=== PATIENT | female | born 1985 | race Caucasian/White ===

== ENCOUNTER 2017-04-21 11:49 | Emergency (ER) | payer OTHER ==
[~2017-04-21] VITALS: Ht 170.2 cm; Wt 52.6 kg
[~2017-04-21 11:49] MED LIST: ALBU17AE26 IH; DEPOPROVER IM; FLUT12AE5 IH
[2017-04-21 11:50] VITALS: BP_SYST 124
[2017-04-21 14:58] LABS: HEMATOCRIT 48.2 % (36-48); HEMOGLOBIN 15.8 g/dL (12.0-16.0); MEAN CORPUSCULAR HEMOGLOBIN 31 pg (27-31); MEAN CORPUSCULAR HGB CONC 33 % (32-36); MEAN CORPUSCULAR VOLUME 95 fL (79.0-98.0); PLATELET COUNT (AUTO) 219 K/uL (130-430); RED BLOOD CELL COUNT(AUTO) 5.08 MIL/uL (4.2-6.2); RED CELL DISTRIBUTION WIDTH 12.6 % (9.0-15.0); WHITE BLOOD COUNT (AUTO) 11.9 K/uL (4.8-10.8)
[2017-04-21 15:13] LABS: CREATININE 0.88 mg/dL (0.55-1.30); POTASSIUM 3.8 mmol/L (3.5-5.1)
[2017-04-21 15:18] LABS: ALBUMIN 4.3 g/dL (3.4-4.8); TOTAL BILIRUBIN 1.2 mg/dL (0.0-1.0)
[2017-04-21] MEDS: IBUPROFEN 600 MG TABLET PO ONE (15:20)
[2017-04-21 15:23] LABS: PROTHROMBIN TIME 10.1 SECS (9.5-12.5)
[2017-04-21] MEDS: ONDANSETRON 4 MG ODT TAB PO ONE (15:26)
[2017-04-21] MEDS: traMADol HCL HCL 50 MG TABLET (ULTRAM) PO ONE (15:27)
[2017-04-21 15:59] LABS: BASOPHILS % (MANUAL) 0 % (0-2); EOSINOPHILS % (MANUAL) 4 % (0-7); LYMPHOCYTES % (MANUAL) 13 % (20-46); MONOCYTES % (MANUAL) 6 % (0-11)
[2017-04-21 16:38] VITALS: BP_SYST 122
== END 2017-04-21 16:44 | disposition home or self-care (01) ==
LOC: SED 11:49
DX: J20.9 Acute bronchitis, unspecified (principal); J45.909 Unspecified asthma, uncomplicated; Z88.0 Allergy status to penicillin; Z79.899 Other long term (current) drug therapy
CPT/HCPCS: 36415; 71010; 71100; 80053; 81025; 84484; 84703; 85007; 85027; 85379; 85610; 85730; 93005; 99285; Q0162

== ENCOUNTER 2017-04-24 09:15 | Emergency (ER) | payer OTHER ==
[~2017-04-24] VITALS: Ht 170.2 cm; Wt 52.6 kg
[2017-04-24 09:18] VITALS: BP_SYST 114
[2017-04-24] MEDS ORDERED: ALBUTEROL SULFATE 0.083% 2.5 MG/3 ML VIAL.NEB IH ONE (10:00)
[2017-04-24] MEDS ORDERED: KETOROLAC TROMETHAMINE 30 MG VIAL IVP ONE (10:00)
[2017-04-24] MEDS ORDERED: IPRATROPIUM BROM 0.5 MG/2.5 ML VIAL.NEB (ATROVENT) IH ONE (10:00)
[2017-04-24 10:27] LABS: BASOPHILS % (AUTO) 0.4 % (0.0-2.0); EOSINOPHILS # (AUTO) 0.1 K/uL (0.0-0.4); EOSINOPHILS % (AUTO) 1.4 % (0.0-4.0); HEMATOCRIT 43.4 % (36-48); HEMOGLOBIN 14.3 g/dL (12.0-16.0); LYMPHOCYTES # (AUTO) 1.1 K/uL (1.0-5.5); LYMPHOCYTES % (AUTO) 12.5 % (20.5-51.5); MEAN CORPUSCULAR HEMOGLOBIN 31 pg (27-31); MEAN CORPUSCULAR HGB CONC 33 % (32-36); MEAN CORPUSCULAR VOLUME 95 fL (79.0-98.0); MONOCYTES # (AUTO) 0.5 K/uL (0.0-1.0); MONOCYTES % (AUTO) 5.7 % (1.7-9.3); NEUTROPHILS # (AUTO) 7.1 K/uL (1.8-7.7); PLATELET COUNT (AUTO) 263 K/uL (130-430); RED BLOOD CELL COUNT(AUTO) 4.57 MIL/uL (4.2-6.2); RED CELL DISTRIBUTION WIDTH 12.2 % (9.0-15.0); WHITE BLOOD COUNT (AUTO) 8.8 K/uL (4.8-10.8)
[2017-04-24 10:48] LABS: CALCIUM 8.9 mg/dL (8.4-11.0); CREATININE 0.87 mg/dL (0.55-1.30); POTASSIUM 3.8 mmol/L (3.5-5.1)
[2017-04-24 10:52] LABS: ALBUMIN 3.8 g/dL (3.4-4.8); TOTAL BILIRUBIN 0.9 mg/dL (0.0-1.0)
[2017-04-24] MEDS ORDERED: NACL 0.9% 1,000 ML IV ONE (11:00)
[2017-04-24] MEDS ORDERED: IOHEXOL 350 mgI/mL, 150 ML INFUS..BTL IV ONE (12:18)
[2017-04-24 13:16] VITALS: BP_SYST 108
== END 2017-04-24 13:16 | disposition home or self-care (01) ==
LOC: SED 09:15
DX: M94.0 Chondrocostal junction syndrome [Tietze] (principal); J45.909 Unspecified asthma, uncomplicated; Z88.0 Allergy status to penicillin; Z90.49 Acquired absence of other specified parts of digestive tract
CPT/HCPCS: 36415; 71010; 71275; 80053; 81025; 85025; 85379; 94640; 96361; 96374; 99285; J1885; J7030; Q9967

== ENCOUNTER 2023-08-13 19:45 | Emergency (ER) | payer OTHER ==
[~2023-08-13] VITALS: Ht 170.2 cm; Wt 56.7 kg
[2023-08-13 20:02] VITALS: BP_SYST 105; PULSE 81; RESP 16; TEMP 97.9; O2SAT 100
[2023-08-13] MEDS ORDERED: CLAR-61 PO (23:53)
[2023-08-13] MEDS ORDERED: MED4 PO (23:53)
[2023-08-13] MEDS ORDERED: BENZ100C92 PO (23:57)
== END 2023-08-14 | disposition home or self-care (01) ==
LOC: SED 19:45
DX: J02.9 Acute pharyngitis, unspecified (principal); J45.909 Unspecified asthma, uncomplicated; Z88.0 Allergy status to penicillin; Z79.899 Other long term (current) drug therapy
CPT/HCPCS: 99283